=== PATIENT | female | born 1990 | race Caucasian/White ===

== ENCOUNTER 2017-01-04 18:03 | Emergency (ER) | payer OTHER ==
[~2017-01-04 18:03] MED LIST: NO MEDICATIONS; NORCO1 TAB 10/3 PO
[2017-01-13] MEDS ORDERED: PRENATAL1 TA1 PO (21:48)
== END 2017-01-04 18:14 | disposition home or self-care (01) ==
LOC: SED 18:03
DX: H66.91 Otitis media, unspecified, right ear (principal); J45.909 Unspecified asthma, uncomplicated; F17.200 Nicotine dependence, unspecified, uncomplicated
CPT/HCPCS: 99282

== ENCOUNTER 2017-01-13 22:21 | Emergency (ER) | payer OTHER ==
[~2017-01-13 22:21] MED LIST changes: +PRENATAL1 TA1 PO
[2017-01-13 22:24] LABS: URINE SOURCE CLEAN CATCH
[2017-01-13 22:27] LABS: MICRO INDICATED? NO; URINE APPEARANCE SL HAZY; URINE BILIRUBIN NEG (NEG); URINE BLOOD NEG (NEG); URINE COLOR YELLOW; URINE GLUCOSE NEG (NORM); URINE KETONE NEG (NEG); URINE LEUKOCYTE ESTERASE NEG (NEG); URINE NITRATE NEG (NEG); URINE PH 7.5 (5-8); URINE PROTEIN NEG (NEG); URINE SPECIFIC GRAVITY 1.015 (1.003-1.035); URINE UROBILINOGEN 0.2 MG/DL (NORM)
== END 2017-01-13 22:43 | disposition home or self-care (01) ==
LOC: SED 22:21
PROVIDERS: Emergency Medicine
DX: M54.5 Low back pain (principal); J45.909 Unspecified asthma, uncomplicated; F17.210 Nicotine dependence, cigarettes, uncomplicated; Z79.899 Other long term (current) drug therapy
CPT/HCPCS: 81003; 99283